=== PATIENT | female | born 1935 | race Caucasian/White ===

== ENCOUNTER 2017-02-25 12:12 | Inpatient (IN) | payer MEDICARE ==
[2017-02-25] MEDS ORDERED: Ondansetron 4 MG/2 ML SDV IVPUSH ONE (12:40)
[2017-02-25] MEDS ORDERED: Sodium Chloride 0.9% 1,000 ML IV SCH (12:45)
[2017-02-25] MEDS ORDERED: Iopamidol 612 MG/ML 150 ML Bottle IV PRN (13:00)
--- NOTE | 2017-02-25 14:29 | EDM.PDOC ---
ED HPI GENERAL MEDICAL PROBLEM - General Chief Complaint: Gastrointestinal Problem Stated Complaint: DIARRHEA; SPITTING UP MUCUS Time Seen by Provider: 02/25/17 12:35 Source of Information: Reports: Patient History Limitations: Reports: No Limitations - History of Present Illness INITIAL COMMENTS - FREE TEXT/NARRATIVE: History of present illness: [81-year-old female presenting with diarrhea and nausea and vomiting. Her vomiting she describes more as regurgitation of villous tasting material in phlegm. This all started last 24 hours. She said no fever chills cough cold symptoms no chest pain or shortness of breath she does complain of a little bit of distention of her abdomen and some pain in her left lower quadrant. She states she did have diverticulitis at one time. Denies any dysuria denies any headaches or visual disturbances or focal neurologic complaints. She is brought in by private vehicle and ambulated into the emergency room she lives close to her children.] Review of systems: As per history of present illness and below otherwise all systems reviewed and negative. Past medical history: As per history of present illness and as reviewed below otherwise noncontributory. Surgical history: As per history of present illness and as reviewed below otherwise noncontributory. Social history: No reported history of drug or alcohol abuse. Family history: As per history of present illness and as reviewed below otherwise noncontributory. Physical exam: HEENT: Atraumatic, normocephalic, pupils reactive, negative for conjunctival pallor or scleral icterus, mucous membranes moist, throat clear, neck supple, nontender, trachea midline. Lungs: Clear to auscultation, breath sounds equal bilaterally, chest nontender. Heart: S1S2, regular, negative for clicks, rubs, or JVD. Abdomen: Abdomen is distended with some tenderness to palpation left lower quadrant no peritoneal signs hypoactive bowel sounds. Pelvis: Stable nontender. Genitourinary: Deferred. Rectal: Deferred. Extremities: Atraumatic, negative for cords or calf pain. Neurovascular unremarkable. Neuro: Awake, alert, oriented. Cranial nerves II through XII unremarkable. Cerebellum unremarkable. Motor and sensory unremarkable throughout. Exam nonfocal. Diagnostics: [CBC does show an elevated white count amylase and lipase are normal. CMP is been done as well as abdominal pelvic CT which is showing a partial small bowel obstruction. She's had 3 abdominal surgeries and likely has adhesions.] Therapeutics: [She's received IV fluids and IV Zofran and is feeling better.] Impression: [Partial small bowel obstruction] Plan: [Spoke with Dr. Snowden who will be coming down to see her and admit her] Definitive disposition and diagnosis as appropriate pending reevaluation and review of above. - Related Data Allergies Allergy/AdvReac Type Severity Reaction Status Date / Time acetaminophen Allergy Nausea Verified 02/25/17 13:25 celecoxib [From Celebrex] Allergy Hives Verified 02/25/17 13:25 cisapride monohydrate Allergy Hives Verified 02/25/17 13:25 [From Propulsid] famotidine [From Pepcid] Allergy Hives Verified 02/25/17 13:25 hydrocodone Allergy Nausea and Verified 02/25/17 13:26 Vomiting lansoprazole [From Prevacid] Allergy Rash Verified 02/25/17 13:25 levofloxacin [From Levaquin] Allergy Rash Verified 02/25/17 13:25 morphine Allergy Hallucinati Verified 02/25/17 13:25 ons omeprazole [From Prilosec] Allergy Rash Verified 02/25/17 13:25 omeprazole magnesium Allergy Rash Verified 02/25/17 13:25 [From Prilosec] pilocarpine Allergy Hives Verified 02/25/17 13:25 prednisolone acetate, Allergy Hives Verified 02/25/17 13:26 micronized rabeprazole sodium Allergy Hives Verified 02/25/17 13:25 [From Aciphex] salsalate [Salsalate] Allergy Hives Verified 02/25/17 13:25 Sulfa (Sulfonamide Allergy Rash Verified 02/25/17 13:25 Antibiotics) Home Meds: Home Meds Ethacrynic Acid [Edecrin] 1 tab PO DAILY 04/07/16 [History] Lisinopril [Lisinopril] 0.5 tab PO BID 04/07/16 [History] Loratadine [Loratadine] 1 tab PO DAILY 04/07/16 [History] Nabumetone [Nabumetone] 1 tab PO DAILY 04/07/16 [History] Simvastatin [Simvastatin] 1 tab PO BEDTIME 04/07/16 [History] Sucralfate [Sucralfate] 1 tab PO QID 04/07/16 [History] Warfarin Sodium [Warfarin Sodium] 1 tab PO ASDIRECTED 04/07/16 [History] amLODIPine Besylate [Amlodipine Besylate] 1 tab PO BEDTIME 04/07/16 [History] metroNIDAZOLE [Metronidazole] 1 dose TOP ASDIRECTED 04/07/16 [History] Acetaminophen [Pain Reliever] 1 - 2 tab PO Q6H PRN 02/25/17 [History] Acetaminophen/Diphenhydramine [Tylenol Pm Ex-Strength Caplet] 1 tab PO BEDTIME 02/25/17 [History] Calcium Carbonate/Vitamin D3 [Calcium Carb 500 MG] 1 tab PO TID 02/25/17 [ History] Ergocalciferol (Vitamin D2) [Vitamin D2] 1 tab PO DAILY 02/25/17 [History] Metoprolol Tartrate 0.25 tab PO BID 02/25/17 [History] Multivitamin [Daily [place]] 1 tab PO DAILY 02/25/17 [History] [place]-3S/DHA/Epa/Fish Oil [[place]-3 Fish Oil 1,000 mg Sfgl] 1 tab PO DAILY [History] Past Medical History HEENT History: Reports: Impaired Vision Cardiovascular History: Reports: Hypertension [employer] History: Reports: Endocrine/Metabolic History: Reports: Diabetes, Type II Other Endocrine/Metabolic History: controlled by diet Hematologic History: Reports: Anemia - Infectious Disease History Infectious Disease History: Reports: Chicken Pox, Measles, Mumps - Past Surgical History GI Surgical History: Reports: Other (See Below) Other GI Surgeries/Procedures: had surgery for diverticulitis and enlarged ovary Female Surgical History: Reports: Other (See Below) Other Female Surgeries/Procedures: bladder sling Musculoskeletal Surgical History: Reports: Knee Replacement Social & Family History - Tobacco Use Smoking Status *Q: Never Smoker - Caffeine Use Caffeine Use: Reports: Coffee - Recreational Drug Use Recreational Drug Use: No ED ROS GENERAL - Review of Systems Review Of Systems: ROS reveals no pertinent complaints other than HPI. ED EXAM, GI/ABD - Physical Exam Exam: See Below Course - Vital Signs Last Recorded V/S: Last Vital Signs Temp 37.3 C 02/25/17 12:29 Pulse 94 02/25/17 12:29 Resp 28 H 02/25/17 12:29 BP 146/69 H 02/25/17 12:29 Pulse Ox 98 02/25/17 12:29 - Orders/Labs/Meds Orders: Active Orders 24 hr Category Date Time Status Abdomen Pelvis w Cont [CT] Stat Exams 02/25/17 12:39 Taken Iopamidol [Isovue-300 (61%)] Med 02/25/17 13:00 Active 135 ml IV . DIRECTED PRN Sodium Chloride 0.9% [Normal Saline] 1,000 ml Med 02/25/17 12:45 Active IV ASDIRECTED Sodium Chloride 0.9% [Normal Saline] 84 ml Med 02/25/17 13:00 Active IV ASDIRECTED Medication Orders Sodium Chloride (Normal Saline) 1,000 mls @ 500 mls/hr IV ASDIRECTED HANNAH Last Admin: 02/25/17 13:00 Dose: 500 mls/hr Sodium Chloride (Normal Saline) 84 mls @ 3.5 mls/sec IV ASDIRECTED [facility] Last Admin: 02/25/17 13:24 Dose: 3.5 mls/sec Iopamidol (Isovue-300 (61%)) 135 ml IV . DIRECTED PRN PRN Reason: RADIOLOGY EXAM Stop: 02/26/17 13:01 Last Admin: 02/25/17 13:24 Dose: 135 ml Labs: Laboratory Tests 02/25/17 02/25/17 02/25/17 Range/Units 12:53 12:53 12:53 WBC 15.1 H (4.5-11.0) K/uL RBC 4.77 (3.30-5.50) M/uL Hgb 14.7 (12.0-15.0) g/dL Hct 42.0 (36.0-48.0) % MCV 88 (80-98) fL MCH 31 (27-31) pg MCHC 35 (32-36) % Plt Count 199 (150-400) K/uL Neut % (Auto) 79 H (36-66) % Lymph % (Auto) 13 L (24-44) % [place] % (Auto) 8 H (2-6) % Eos % (Auto) 1 L (2-4) % Baso % (Auto) 0 (0-1) % PT (9.5-12.0) sec INR (0.80-1.20) Sodium 134 L (140-148) mmol/L Potassium 4.1 (3.6-5.2) mmol/L Chloride 99 L (100-108) mmol/L Carbon Dioxide 24 (21-32) mmol/L Anion Gap 15.1 H (5.0-14.0) mmol/L BUN 17 (7-18) mg/dL Creatinine 0.9 (0.6-1.0) mg/dL Est Cr Clr Drug Dosing 35.74 mL/min Estimated GFR (MDRD) 60 (>60) Glucose 140 H (74-106) mg/dL Lactic Acid 2.0 (0.4-2.0) mmol/L Calcium 8.9 (8.5-10.1) mg/dL Total Bilirubin 0.7 (0.2-1.0) mg/dL AST 23 (15-37) U/L ALT 24 (12-78) U/L Alkaline Phosphatase 60 (46-116) U/L Total Protein 7.3 (6.4-8.2) g/dL Albumin 3.4 (3.4-5.0) g/dL Globulin 3.9 H (2.3-3.5) g/dL Albumin/Globulin Ratio 0.9 L (1.2-2.2) Amylase 37 (25-115) U/L Lipase 98 (73-393) U/L Urine Color Urine Appearance Urine pH (4.5-8.0) Ur Specific [place] (1.008-1.030) Urine Protein (NEGATIVE) mg/dL Urine Glucose (UA) (NEGATIVE) mg/dL Urine Ketones (NEGATIVE) mg/dL Urine Occult Blood (NEGATIVE) Urine Nitrite (NEGATIVE) Urine Bilirubin (NEGATIVE) Urine Urobilinogen (NORMAL) mg/dL Ur Leukocyte Esterase (NEGATIVE) Urine RBC (0-5) Urine WBC (0-5) Ur Epithelial Cells Amorphous Sediment Urine Bacteria Urine Mucus 02/25/17 02/25/17 Range/Units 13:02 13:07 WBC (4.5-11.0) K/uL RBC (3.30-5.50) M/uL Hgb (12.0-15.0) g/dL Hct (36.0-48.0) % MCV (80-98) fL MCH (27-31) pg MCHC (32-36) % Plt Count (150-400) K/uL Neut % (Auto) (36-66) % Lymph % (Auto) (24-44) % [place] % (Auto) (2-6) % Eos % (Auto) (2-4) % Baso % (Auto) (0-1) % PT 17.6 H (9.5-12.0) sec INR 1.61 H (0.80-1.20) Sodium (140-148) mmol/L Potassium (3.6-5.2) mmol/L Chloride (100-108) mmol/L Carbon Dioxide (21-32) mmol/L Anion Gap (5.0-14.0) mmol/L BUN (7-18) mg/dL Creatinine (0.6-1.0) mg/dL Est Cr Clr Drug Dosing mL/min Estimated GFR (MDRD) (>60) Glucose (74-106) mg/dL Lactic Acid (0.4-2.0) mmol/L Calcium (8.5-10.1) mg/dL Total Bilirubin (0.2-1.0) mg/dL AST (15-37) U/L ALT (12-78) U/L Alkaline Phosphatase (46-116) U/L Total Protein (6.4-8.2) g/dL Albumin (3.4-5.0) g/dL Globulin (2.3-3.5) g/dL Albumin/Globulin Ratio (1.2-2.2) Amylase (25-115) U/L Lipase (73-393) U/L Urine Color Yellow Urine Appearance Cloudy Urine pH 7.0 (4.5-8.0) Ur Specific [place] 1.010 (1.008-1.030) Urine Protein Negative (NEGATIVE) mg/dL Urine Glucose (UA) Normal (NEGATIVE) mg/dL Urine Ketones Negative (NEGATIVE) mg/dL Urine Occult Blood Moderate (NEGATIVE) Urine Nitrite Negative (NEGATIVE) Urine Bilirubin Negative (NEGATIVE) Urine Urobilinogen Normal (NORMAL) mg/dL Ur Leukocyte Esterase Negative (NEGATIVE) Urine RBC 0-5 (0-5) Urine WBC 0-5 (0-5) Ur Epithelial Cells Not seen Amorphous Sediment Not seen Urine Bacteria Many Urine Mucus Not seen Meds: Medications Generic Name Dose Route Start Last Admin Trade Name Freq PRN Reason Stop Dose Admin Sodium Chloride 1,000 mls @ 500 mls/hr 02/25/17 12:45 02/25/17 13:00 Normal Saline IV 500 mls/hr ASDIRECTED HANNAH Administration Sodium Chloride 84 mls @ 3.5 mls/sec 02/25/17 13:00 02/25/17 13:24 Normal Saline IV 3.5 mls/sec ASDIRECTED HANNAH Administration Iopamidol 135 ml 02/25/17 13:00 02/25/17 13:24 Isovue-300 (61%) IV 02/26/17 13:01 135 ml . DIRECTED PRN Administration RADIOLOGY EXAM Discontinued Medications Generic Name Dose Route Start Last Admin Trade Name Leonard PRN Reason Stop Dose Admin Ondansetron HCl 4 mg 02/25/17 12:40 02/25/17 12:58 Zofran IVPUSH 02/25/17 12:41 4 mg ONETIME ONE Administration Departure - Departure Time of Disposition: 14:29 Disposition: Home, Self-Care 01 Condition: Good Clinical Impression: Small bowel obstruction - Discharge Information Forms: ED Department Discharge - My Orders Last 24 Hours: My Active Orders 02/25/17 12:39 Abdomen Pelvis w Cont [CT] Stat 02/25/17 12:45 Sodium Chloride 0.9% [Normal Saline] 1,000 ml IV ASDIRECTED 02/25/17 13:00 Iopamidol [Isovue-300 (61%)] 135 ml IV . DIRECTED PRN Sodium Chloride 0.9% [Normal Saline] 84 ml IV ASDIRECTED - Assessment/Plan Last 24 Hours: My Active Orders 02/25/17 12:39 Abdomen Pelvis w Cont [CT] Stat 02/25/17 12:45 Sodium Chloride 0.9% [Normal Saline] 1,000 ml IV ASDIRECTED 02/25/17 13:00 Iopamidol [Isovue-300 (61%)] 135 ml IV . DIRECTED PRN Sodium Chloride 0.9% [Normal Saline] 84 ml IV ASDIRECTED
--- NOTE | 2017-02-25 15:19 | PCM.HP ---
H&P History of Present Illness - General Date of Service: 02/25/17 Admit Problem/Dx: Admission Diagnosis/Problem Admission Diagnosis/Problem Small bowel obstruction Source of Information: Patient, Provider History Limitations: Reports: No Limitations - History of Present Illness Initial Comments - Free Text/Narative: Ruchi presents to the emergency room today with abdominal pain, nausea and diarrhea. She reports onset of pain and nausea last night. She describes a crampy and achy left lower quadrant abdominal pain but also some left upper quadrant pain. This is moderate in nature and comes and goes in waves. She has not taken anything to help with the pain. No obvious triggers to make the pain worse. She reports nausea but no vomiting. She has the sensation that there is an acid-like fluid in her esophagus. This morning she had multiple episodes of watery diarrhea but no associated abdominal pain. She has not had any fevers, chills. She does not report chest pain or shortness of breath. She does not have any urinary symptoms at this time. Workup in the emergency room was suggestive of leukocytosis and a probable partial small bowel obstruction. She will have an NG tube placed and be admitted for management of a small bowel obstruction. - Related Data Allergies/Adverse Reactions: Allergies Allergy/AdvReac Type Severity Reaction Status Date / Time acetaminophen Allergy Nausea Verified 02/25/17 13:25 celecoxib [From Celebrex] Allergy Hives Verified 02/25/17 13:25 cisapride monohydrate Allergy Hives Verified 02/25/17 13:25 [From Propulsid] famotidine [From Pepcid] Allergy Hives Verified 02/25/17 13:25 hydrocodone Allergy Nausea and Verified 02/25/17 13:26 Vomiting lansoprazole [From Prevacid] Allergy Rash Verified 02/25/17 13:25 levofloxacin [From Levaquin] Allergy Rash Verified 02/25/17 13:25 morphine Allergy Hallucinati Verified 02/25/17 13:25 ons omeprazole [From Prilosec] Allergy Rash Verified 02/25/17 13:25 omeprazole magnesium Allergy Rash Verified 02/25/17 13:25 [From Prilosec] pilocarpine Allergy Hives Verified 02/25/17 13:25 prednisolone acetate, Allergy Hives Verified 02/25/17 13:26 micronized rabeprazole sodium Allergy Hives Verified 02/25/17 13:25 [From Aciphex] salsalate [Salsalate] Allergy Hives Verified 02/25/17 13:25 Sulfa (Sulfonamide Allergy Rash Verified 02/25/17 13:25 Antibiotics) Home Medications: Home Meds Ethacrynic Acid [Edecrin] 1 tab PO DAILY 04/07/16 [History] Lisinopril [Lisinopril] 0.5 tab PO BID 04/07/16 [History] Loratadine [Loratadine] 1 tab PO DAILY 04/07/16 [History] Nabumetone [Nabumetone] 1 tab PO DAILY 04/07/16 [History] Simvastatin [Simvastatin] 1 tab PO BEDTIME 04/07/16 [History] Sucralfate [Sucralfate] 1 tab PO QID 04/07/16 [History] Warfarin Sodium [Warfarin Sodium] 1 tab PO ASDIRECTED 04/07/16 [History] amLODIPine Besylate [Amlodipine Besylate] 1 tab PO BEDTIME 04/07/16 [History] metroNIDAZOLE [Metronidazole] 1 dose TOP ASDIRECTED 04/07/16 [History] Acetaminophen [Pain Reliever] 1 - 2 tab PO Q6H PRN 02/25/17 [History] Acetaminophen/Diphenhydramine [Tylenol Pm Ex-Strength Caplet] 1 tab PO BEDTIME 02/25/17 [History] Calcium Carbonate/Vitamin D3 [Calcium Carb 500 MG] 1 tab PO TID 02/25/17 [ History] Ergocalciferol (Vitamin D2) [Vitamin D2] 1 tab PO DAILY 02/25/17 [History] Metoprolol Tartrate 0.25 tab PO BID 02/25/17 [History] Multivitamin [Daily Bradly] 1 tab PO DAILY 02/25/17 [History] [place]-3S/DHA/Epa/Fish Oil [[place]-3 Fish Oil 1,000 mg Sfgl] 1 tab PO DAILY [History] Past Medical History HEENT History: Reports: Impaired Vision Cardiovascular History: Reports: Hypertension PER DIEM History: Reports: Endocrine/Metabolic History: Reports: Diabetes, Type II Other Endocrine/Metabolic History: controlled by diet Hematologic History: Reports: Anemia - Infectious Disease History Infectious Disease History: Reports: Chicken Pox, Measles, Mumps - Past Surgical History GI Surgical History: Reports: Other (See Below) Other GI Surgeries/Procedures: had surgery for diverticulitis and enlarged ovary Female Surgical History: Reports: Other (See Below) Other Female Surgeries/Procedures: bladder sling Musculoskeletal Surgical History: Reports: Knee Replacement Social & Family History - Family History GI: Reports: Other (See Below) (no hx of obstruction) - Tobacco Use Smoking Status *Q: Never Smoker - Caffeine Use Caffeine Use: Reports: Coffee - Alcohol Use Alcohol Use History: No - Recreational Drug Use Recreational Drug Use: No H&P Review of Systems - Review of Systems: Review Of Systems: See Below Free Text/Narrative: A complete 12 point review of systems was obtained. Pertinent positives and negatives are noted in the history of present illness. All other systems were reviewed and were negative except as noted. Exam - Exam Exam: See Below - Vital Signs Vital Signs: Last Vital Signs Temp 37.3 C 02/25/17 12:29 Pulse 94 02/25/17 12:29 Resp 28 H 02/25/17 12:29 BP 146/69 H 02/25/17 12:29 Pulse Ox 98 02/25/17 12:29 Weight: 89.5 kg - Exam Quality Assessment: No: Supplemental Oxygen General: Alert, Oriented, Cooperative. No: Mild Distress HEENT: Conjunctiva Clear. No: Mucosa Moist & [place] (dry), Scleral Icterus Neck: Supple, Trachea Midline. No: Lymphadenopathy Lungs: Clear to Auscultation, Normal Respiratory Effort Cardiovascular: Regular Rate, Regular Rhythm. No: Systolic Murmur Abdomen: Soft, Distention, Tenderness (moderate epigastric, mild to moderate LLQ ), Hypoactive Bowel Sounds, Hernia (ventral ). No: Mass Back Exam: Normal Inspection, Full Range of Motion Extremities: Normal Inspection, Normal Pulses. No: Cyanosis Skin: Warm, Dry Neuro Extensive - Mental Status: Alert, Oriented x3, Nl Response to Commands Neuro Extensive - Motor, Sensory, Reflexes: CN II-XII Intact. No: Dysarthria, Abnormal Motor, Tremor Psychiatric: Alert, Normal Affect - Patient Data Lab Results Last 24 hrs: Laboratory Results - last 24 hr 02/25/17 02/25/17 02/25/17 Range/Units 12:53 12:53 12:53 WBC 15.1 H (4.5-11.0) K/uL RBC 4.77 (3.30-5.50) M/uL Hgb 14.7 (12.0-15.0) g/dL Hct 42.0 (36.0-48.0) % MCV 88 (80-98) fL MCH 31 (27-31) pg MCHC 35 (32-36) % Plt Count 199 (150-400) K/uL Neut % (Auto) 79 H (36-66) % Lymph % (Auto) 13 L (24-44) % [place] % (Auto) 8 H (2-6) % Eos % (Auto) 1 L (2-4) % Baso % (Auto) 0 (0-1) % PT (9.5-12.0) sec INR (0.80-1.20) Sodium 134 L (140-148) mmol/L Potassium 4.1 (3.6-5.2) mmol/L Chloride 99 L (100-108) mmol/L Carbon Dioxide 24 (21-32) mmol/L Anion Gap 15.1 H (5.0-14.0) mmol/L BUN 17 (7-18) mg/dL Creatinine 0.9 (0.6-1.0) mg/dL Est Cr Clr Drug Dosing 35.74 mL/min Estimated GFR (MDRD) 60 (>60) Glucose 140 H (74-106) mg/dL Lactic Acid 2.0 (0.4-2.0) mmol/L Calcium 8.9 (8.5-10.1) mg/dL Total Bilirubin 0.7 (0.2-1.0) mg/dL AST 23 (15-37) U/L ALT 24 (12-78) U/L Alkaline Phosphatase 60 (46-116) U/L Total Protein 7.3 (6.4-8.2) g/dL Albumin 3.4 (3.4-5.0) g/dL Globulin 3.9 H (2.3-3.5) g/dL Albumin/Globulin Ratio 0.9 L (1.2-2.2) Amylase 37 (25-115) U/L Lipase 98 (73-393) U/L Urine Color Urine Appearance Urine pH (4.5-8.0) Ur Specific [place] (1.008-1.030) Urine Protein (NEGATIVE) mg/dL Urine Glucose (UA) (NEGATIVE) mg/dL Urine Ketones (NEGATIVE) mg/dL Urine Occult Blood (NEGATIVE) Urine Nitrite (NEGATIVE) Urine Bilirubin (NEGATIVE) Urine Urobilinogen (NORMAL) mg/dL Ur Leukocyte Esterase (NEGATIVE) Urine RBC (0-5) Urine WBC (0-5) Ur Epithelial Cells Amorphous Sediment Urine Bacteria Urine Mucus 02/25/17 02/25/17 Range/Units 13:02 13:07 WBC (4.5-11.0) K/uL RBC (3.30-5.50) M/uL Hgb (12.0-15.0) g/dL Hct (36.0-48.0) % MCV (80-98) fL MCH (27-31) pg MCHC (32-36) % Plt Count (150-400) K/uL Neut % (Auto) (36-66) % Lymph % (Auto) (24-44) % [place] % (Auto) (2-6) % Eos % (Auto) (2-4) % Baso % (Auto) (0-1) % PT 17.6 H (9.5-12.0) sec INR 1.61 H (0.80-1.20) Sodium (140-148) mmol/L Potassium (3.6-5.2) mmol/L Chloride (100-108) mmol/L Carbon Dioxide (21-32) mmol/L Anion Gap (5.0-14.0) mmol/L BUN (7-18) mg/dL Creatinine (0.6-1.0) mg/dL Est Cr Clr Drug Dosing mL/min Estimated GFR (MDRD) (>60) Glucose (74-106) mg/dL Lactic Acid (0.4-2.0) mmol/L Calcium (8.5-10.1) mg/dL Total Bilirubin (0.2-1.0) mg/dL AST (15-37) U/L ALT (12-78) U/L Alkaline Phosphatase (46-116) U/L Total Protein (6.4-8.2) g/dL Albumin (3.4-5.0) g/dL Globulin (2.3-3.5) g/dL Albumin/Globulin Ratio (1.2-2.2) Amylase (25-115) U/L Lipase (73-393) U/L Urine Color Yellow Urine Appearance Cloudy Urine pH 7.0 (4.5-8.0) Ur Specific [place] 1.010 (1.008-1.030) Urine Protein Negative (NEGATIVE) mg/dL Urine Glucose (UA) Normal (NEGATIVE) mg/dL Urine Ketones Negative (NEGATIVE) mg/dL Urine Occult Blood Moderate (NEGATIVE) Urine Nitrite Negative (NEGATIVE) Urine Bilirubin Negative (NEGATIVE) Urine Urobilinogen Normal (NORMAL) mg/dL Ur Leukocyte Esterase Negative (NEGATIVE) Urine RBC 0-5 (0-5) Urine WBC 0-5 (0-5) Ur Epithelial Cells Not seen Amorphous Sediment Not seen Urine Bacteria Many Urine Mucus Not seen Result Diagrams: 02/25/17 12:53 02/25/17 12:53 Imaging Impressions Last 24 hrs: CT abd/pelvis - images personally reviewed - there is evidence for at least a partial small bowel obstruction with distended loops of small bowel and stomach distended as well. Probable mechanical obstruction in LLQ. no mass or infection. *Q Meaningful Use (ADM) - VTE *Q VTE Criteria *Q: - VTE Risk Assess *Q Each Risk Factor Represents 1 Point: None, Obesity (BMI greater than 30) Total Score 1 Point Risk Factors: 1 Each Risk Factor Represents 2 Points: None Total Score 2 Point Risk Factors: 0 Each Risk Factor Represents 3 Points: Age 75 Years or Greater Total Score 3 Point Risk Factors: 3 Each Risk Factor Represents 5 Points: None Total Score 5 Point Risk Factors: 0 Venous Thromboembolism Risk Factor Score *Q: 4 - Stroke *Q Stroke Criteria *Q: - AMI *Q AMI Criteria *Q: - Problem List (1) Small bowel obstruction SNOMED Code(s): 635320712 ICD Code: K56.69 - OTHER INTESTINAL OBSTRUCTION Status: Acute Current Visit: Yes Problem List Initiated/Reviewed/Updated: Yes Orders Last 24hrs: Active Orders 24 hr Category Date Time Status Patient Status Manage Transfer [TRANSFER] Routine ADT 02/25/17 15:07 Ordered Gastrointestinal Tube Mgmt [RC] ASDIRECTED Care 02/25/17 15:07 Active Abdomen Pelvis w Cont [CT] Stat Exams 02/25/17 12:39 Taken Iopamidol [Isovue-300 (61%)] Med 02/25/17 13:00 Active 135 ml IV . DIRECTED PRN Sodium Chloride 0.9% [Normal Saline] 1,000 ml Med 02/25/17 12:45 Active IV ASDIRECTED Sodium Chloride 0.9% [Normal Saline] 84 ml Med 02/25/17 13:00 Active IV ASDIRECTED NG [Nasogastric Orogastric Tube Insertion] [OM.PC] Oth 02/25/17 15:07 Ordered Routine Resuscitation Status Routine Resus Stat 02/25/17 15:10 Ordered Medication Orders Sodium Chloride (Normal Saline) 1,000 mls @ 500 mls/hr IV ASDIRECTED HANNAH Last Admin: 02/25/17 13:00 Dose: 500 mls/hr Sodium Chloride (Normal Saline) 84 mls @ 3.5 mls/sec IV ASDIRECTED HANNAH Last Admin: 02/25/17 13:24 Dose: 3.5 mls/sec Iopamidol (Isovue-300 (61%)) 135 ml IV . DIRECTED PRN PRN Reason: RADIOLOGY EXAM Stop: 02/26/17 13:01 Last Admin: 02/25/17 13:24 Dose: 135 ml Assessment/Plan Comment:: Assessment and plan - Partial small bowel obstruction - likely secondary to adhesions. No vomiting yet but stomach is distended and fluid-filled. History of 3 previous left lower quadrant abdominal surgeries. Mild leukocytosis but otherwise stable. -NG tube for decompression -IV fluids -Pain control -Anti-nausea medications -X-ray in the morning -Surgical consultation if not resolving or worsening Essential hypertension - blood pressure acceptable at this time and usual medications will be continued. Chronic anticoagulation - INR is 1.6 today, will hold warfarin in case surgery is indicated. -Repeat INR in the morning Maintenance issues - - DVT prophylaxis - mechanical - GI prophylaxis - patient is allergic to PPI's and H2 blockers - Nutrition - nothing by mouth - Rubio catheter - not indicated CODE STATUS - full code Admission justification - This patient will be admitted for inpatient services and is medically appropriate meeting medical necessity for inpatient admission as outlined in my documentation. I reasonably expect the patient will require inpatient services that span a period time over 2 midnights. I reasonably expect this patient to be discharged or transferred within 96 hours [facility]. Disposition - anticipated discharge to home after the hospital stay Primary care physician - Lizbeth Macedo nurse practitioner Nicola Snowden M.D.
[2017-02-25] MEDS ORDERED: Acetaminophen 650 MG Supp RECTAL PRN (16:39)
[2017-02-25] MEDS ORDERED: Ondansetron 4 MG Tab.DIS PO PRN (16:39)
[2017-02-25] MEDS ORDERED: HYDROmorphone 0.5 MG/0.5 ML Syringe IVPUSH PRN (16:39)
[2017-02-25] MEDS ORDERED: Ondansetron 4 MG/2 ML SDV IV PRN (16:39)
[2017-02-25] MEDS ORDERED: Acetaminophen 325 MG Tab PO PRN (16:39)
[2017-02-25] MEDS: Sodium Chloride 0.9% 1,000 ML IV SCH (17:12)
[2017-02-25] MEDS ORDERED: amLODIPine 5 MG Tab ONE (19:39)
[2017-02-25] MEDS ORDERED: Lisinopril 10 MG Tab ONE (19:40)
[2017-02-25] MEDS: amLODIPine 2.5 MG Tab PO SCH (20:06)
[2017-02-25] MEDS: Metoprolol Tartrate 25 MG Tab PO SCH (20:06)
[2017-02-25] MEDS: Lisinopril 20 MG Tab PO SCH (20:08)
--- NOTE | 2017-02-25 20:22 | PCM.SN ---
- Free Text/Narrative Note: call from [address] [place] [address]; Mrs. Toledo is requesting her night time medications ; Benadryl, Tylenol and Simvastin a; sleep and high cholesterol p; order benadryl 25mg po, tylenol 500mg po, simvastin 20mg po, give with sip of water.
[2017-02-25] MEDS: Acetaminophen 500 MG Tab PO PRN (21:14)
[2017-02-25] MEDS: diphenhydrAMINE 25 MG Cap PO SCH (21:14)
[2017-02-25] MEDS: Simvastatin 20 MG Tab PO SCH (21:14)
[2017-02-26] MEDS: Lisinopril 20 MG Tab PO SCH ×2 (09:43→21:47)
[2017-02-26] MEDS: Metoprolol Tartrate 25 MG Tab PO SCH ×2 (09:44→21:44)
[2017-02-26] MEDS: Sodium Chloride 0.9% 1,000 ML IV SCH (09:44)
--- NOTE | 2017-02-26 12:14 | PCM.PN ---
- General Info Date of Service: 02/26/17 Functional Status: Reports: pain controlled, ambulating - Review of Systems Gastrointestinal: Reports: Abdominal pain, Nausea Systems Review Comment:: No acute events overnight. She did have a bowel movement this morning. Abdominal pain and distention have improved. NG tube output has been fairly minimal with only 150 mL overnight. Appetite is returning. Abdominal x-ray this morning showed significant improvement in the obstruction with no air-fluid levels remaining and no distended loops of bowel noted. - Patient Data Vitals - most recent: Last Vital Signs Temp 36.8 C 02/26/17 11:04 Pulse 70 02/26/17 11:04 Resp 16 02/26/17 11:04 BP 107/56 L 02/26/17 11:25 Pulse Ox 92 L 02/26/17 11:04 Weight - most recent: 88.904 kg I&O - last 24 hours: Intake & Output 02/25/17 02/26/17 02/26/17 22:59 06:59 14:59 Intake Total 1449 Output Total 200 650 300 Balance -200 799 -300 Lab Results last 24 hrs: Laboratory Results - last 24 hr 02/26/17 02/26/17 02/26/17 Range/Units 05:30 05:30 05:30 WBC 7.2 (4.5-11.0) K/uL RBC 4.16 (3.30-5.50) M/uL Hgb 12.7 D (12.0-15.0) g/dL Hct 37.5 (36.0-48.0) % MCV 90 (80-98) fL MCH 31 (27-31) pg MCHC 34 (32-36) % Plt Count 165 (150-400) K/uL PT 17.8 H (9.5-12.0) sec INR 1.63 H (0.80-1.20) Sodium 140 (140-148) mmol/L Potassium 3.9 (3.6-5.2) mmol/L Chloride 108 (100-108) mmol/L Carbon Dioxide 25 (21-32) mmol/L Anion Gap 7.2 (5.0-14.0) mmol/L BUN 13 (7-18) mg/dL Creatinine 0.8 (0.6-1.0) mg/dL Est Cr Clr Drug Dosing 40.21 mL/min Estimated GFR (MDRD) > 60 (>60) Glucose 107 H (74-106) mg/dL Calcium 7.9 L (8.5-10.1) mg/dL Med Orders - Current: Current Medications Acetaminophen (Tylenol) 650 mg PO Q4H PRN PRN Reason: Pain (Mild 1-3)/fever Acetaminophen (Tylenol) 650 mg RECTAL Q4H PRN PRN Reason: Mild pain/fever Acetaminophen (Tylenol Extra Strength) 500 mg PO BEDTIME PRN PRN Reason: Pain Last Admin: 02/25/17 21:14 Dose: 500 mg Amlodipine Besylate (Norvasc) 2.5 mg PO BEDTIME [facility] Last Admin: 02/25/17 20:06 Dose: 2.5 mg Diphenhydramine HCl (Benadryl) 25 mg PO BEDTIME [facility] Last Admin: 02/25/17 21:14 Dose: 25 mg Ethacrynic Acid (Edecrin) 25 mg PO DAILY [facility] Last Admin: 02/26/17 09:46 Dose: Not Given Hydromorphone HCl (Dilaudid) 0.5 - 1 mg IVPUSH Q2H PRN PRN Reason: Pain (severe 7-10) Last Admin: 02/26/17 05:44 Dose: 0.5 mg Sodium Chloride (Normal Saline) 1,000 mls @ 125 mls/hr IV ASDIRECTED [facility] Last Admin: 02/26/17 09:44 Dose: 125 mls/hr Lisinopril (Prinivil) 20 mg PO BID [facility] Last Admin: 02/26/17 09:43 Dose: 20 mg Metoprolol Tartrate (Lopressor) 12.5 mg PO BID [facility] Last Admin: 02/26/17 09:44 Dose: 12.5 mg Ondansetron HCl (Zofran Odt) 4 mg PO Q6H PRN PRN Reason: Nausea able to take PO Ondansetron HCl (Zofran) 4 mg IV Q6H PRN PRN Reason: Nausea/Vomiting Last Admin: 02/25/17 19:25 Dose: 4 mg Simvastatin (Zocor) 20 mg PO BEDTIME [facility] Last Admin: 02/25/17 21:14 Dose: 20 mg Discontinued Medications Amlodipine Besylate (Norvasc) Confirm Administered Dose 5 mg .ROUTE .STK-MED ONE Stop: 02/25/17 19:40 Last Admin: 02/25/17 20:05 Dose: Not Given Sodium Chloride (Normal Saline) 1,000 mls @ 500 mls/hr IV ASDIRECTED [facility] Last Admin: 02/25/17 13:00 Dose: 500 mls/hr Sodium Chloride (Normal Saline) 84 mls @ 3.5 mls/sec IV ASDIRECTED [facility] Last Admin: 02/25/17 13:24 Dose: 3.5 mls/sec Iopamidol (Isovue-300 (61%)) 135 ml IV . DIRECTED PRN PRN Reason: RADIOLOGY EXAM Stop: 02/26/17 13:01 Last Admin: 02/25/17 13:24 Dose: 135 ml Lisinopril (Prinivil) Confirm Administered Dose 20 mg .ROUTE .STK-MED ONE Stop: 02/25/17 19:41 Last Admin: 02/25/17 20:05 Dose: Not Given Ondansetron HCl (Zofran) 4 mg IVPUSH ONETIME ONE Stop: 02/25/17 12:41 Last Admin: 02/25/17 12:58 Dose: 4 mg - Exam Quality Assessment: No: supplemental oxygen General: alert, oriented, cooperative, no acute distress Neck: supple Lungs: Normal respiratory effort Abdomen: bowel sounds present, soft, no distension, tenderness (mild LLQ) Extremities: no edema, no cyanosis Skin: warm, dry, intact Psy/Mental Status: alert, normal affect - Problem List & Annotations (1) Small bowel obstruction SNOMED Code(s): 285409116 Code(s): K56.69 - OTHER INTESTINAL OBSTRUCTION Status: Acute Current Visit: Yes - Problem List Review Problem List Initiated/Reviewed/Updated: Yes - My Orders Last 24 Hours: My Active Orders 02/25/17 16:39 Patient Status [ADT] Routine Intake and Output [RC] QSHIFT Notify Provider Vital Signs [RC] ASDIRECTED Oxygen Therapy [RC] PRN Up With Assistance [RC] ASDIRECTED VTE/DVT Education [RC] Per Unit Routine Vital Signs [RC] Q4H Acetaminophen [Tylenol] 650 mg PO Q4H PRN Acetaminophen [Tylenol] 650 mg RECTAL Q4H PRN HYDROmorphone [Dilaudid] 0.5 - 1 mg IVPUSH Q2H PRN Ondansetron [Zofran ODT] 4 mg PO Q6H PRN Ondansetron [Zofran] 4 mg IV Q6H PRN Sodium Chloride 0.9% [Normal Saline] 1,000 ml IV ASDIRECTED Sequential Compression Device [OM.PC] Per Unit Routine 02/25/17 Dinner Nothing per Oral Now Diet [DIET] 02/26/17 05:00 Abdomen 2V AP Flat Upright [CR] DAILY 02/26/17 09:13 Communication Order [RC] ROUTINE 02/26/17 09:21 Resuscitation Status Routine 02/26/17 13:00 Warfarin [Coumadin] 5 mg PO DAILY@1300 02/27/17 05:00 Abdomen 2V AP Flat Upright [CR] DAILY CBC W/O DIFF,HEMOGRAM [HEME] Timed (1) INR,PT,PROTHROMBIN TIME [COAG] Timed POTASSIUM,K [CHEM] Timed - Plan Plan:: Assessment and plan - Partial small bowel obstruction - likely secondary to adhesions. Symptomatically doing much better. Minimal NG tube drainage. -Clamp NG tube, remove this afternoon if drainage is minimal -IV fluids this morning, saline lock if NG tube is removed -Pain control -Anti-nausea medications -Trial of clear liquids later if NG tube was removed -Surgical consultation if not resolving or worsening Essential hypertension - blood pressure acceptable at this time and usual medications will be continued. Chronic anticoagulation - INR is 1.6 today, plan to restart warfarin today. -Warfarin 5 mg daily -Repeat INR in the morning Maintenance issues - - DVT prophylaxis - mechanical - GI prophylaxis - patient is allergic to PPI's and H2 blockers - Nutrition - nothing by mouth - Rubio catheter - not indicated CODE STATUS - patient has advanced directive stating she is a DNR/DNI Disposition - anticipated discharge to home after the hospital stay, possibly tomorrow if we're able to advance her diet overnight and she continues to do well Primary care physician - Lizbeth Snowden M.D.
[2017-02-26] MEDS: Warfarin 5 MG Tab PO SCH (14:45)
[2017-02-26] MEDS: diphenhydrAMINE 25 MG Cap PO SCH (21:44)
[2017-02-26] MEDS: amLODIPine 2.5 MG Tab PO SCH (21:46)
[2017-02-26] MEDS: Simvastatin 20 MG Tab PO SCH (21:46)
[2017-02-26] MEDS: Acetaminophen 500 MG Tab PO PRN (21:47)
[2017-02-27 08:17] VITALS: BP 142/75
[2017-02-27] MEDS: Metoprolol Tartrate 25 MG Tab PO SCH (08:39)
[2017-02-27] MEDS: Lisinopril 20 MG Tab PO SCH (08:40)
[2017-02-27] MEDS ORDERED: Potassium Chloride 20 MEQ Tab.ER PO ONE (09:00)
--- NOTE | 2017-02-27 10:27 | PCM.DCSUM1 ---
Discharge Summary - Hospital Course Brief History: Ms. Toledo is an 81-year-old woman who was admitted through the emergency department with nausea and vomiting, abdominal pain, secondary to mechanical bowel obstruction. - Discharge Data Discharge Date: 02/27/17 Discharge Disposition: Home, Self-Care 01 Condition: Good - Discharge Diagnosis/Problem(s) (1) Small bowel obstruction SNOMED Code(s): 425360037 ICD Code: K56.69 - OTHER INTESTINAL OBSTRUCTION Status: Acute Current Visit: Yes - Patient Summary/Data Hospital Course: Ms. Toledo is an 81-year-old woman who developed symptoms of nausea vomiting with cramping abdominal pain. On evaluation in the emergency department vital signs were stable and she was afebrile. CT scan of the abdomen did document bowel obstruction and an NG tube was placed for management. She was admitted to the hospital and given IV pain medication as well as antiemetic therapy as needed. IV fluids were initiated for hydration and she was kept nothing by mouth. By the following day she was feeling better, NG tube was clamped and after 4 hours there was only minimal residual. NG tube was removed and she was started on a clear liquid diet. She tolerated this overnight and on the day of discharge tolerated a soft mechanical diet at breakfast and lunch without difficulty. She will be discharged home on a soft mechanical diet, activity will be as tolerated. Follow-up appointment will be scheduled with her primary care provider within one week. Follow-up appointment in the Coumadin clinic will be scheduled in 2 days. - Patient Instructions Diet: GI Soft/Low Residue/Low Fiber Activity: As Tolerated Other/Special Instructions: Schedule follow-up appointment with primary care provider Lizbeth Macedo within one week. Schedule follow-up appointment in the Coumadin clinic in 2 days. - Discharge Plan Home Medications: Home Meds Ethacrynic Acid [Edecrin] 1 tab PO DAILY 04/07/16 [History] Lisinopril 0.5 tab PO BID 04/07/16 [History] Loratadine 1 tab PO DAILY 04/07/16 [History] Nabumetone 1 tab PO DAILY 04/07/16 [History] Simvastatin 1 tab PO BEDTIME 04/07/16 [History] Sucralfate 1 tab PO QID 04/07/16 [History] Warfarin Sodium 1 tab PO ASDIRECTED 04/07/16 [History] amLODIPine Besylate [Amlodipine Besylate] 1 tab PO BEDTIME 04/07/16 [History] metroNIDAZOLE [Metronidazole] 1 dose TOP ASDIRECTED 04/07/16 [History] Acetaminophen [Pain Reliever] 1 - 2 tab PO Q6H PRN 02/25/17 [History] Acetaminophen/Diphenhydramine [Tylenol Pm Ex-Strength Caplet] 1 tab PO BEDTIME 02/25/17 [History] Calcium Carbonate/Vitamin D3 [Calcium Carb 500 MG] 1 tab PO TID 02/25/17 [ History] Ergocalciferol (Vitamin D2) [Vitamin D2] 1 tab PO DAILY 02/25/17 [History] Metoprolol Tartrate 0.25 tab PO BID 02/25/17 [History] Multivitamin [Daily Bradly] 1 tab PO DAILY 02/25/17 [History] Cameron-3S/DHA/Epa/Fish Oil [[place]-3 Fish Oil 1,000 mg Sfgl] 1 tab PO DAILY [History] Referrals: Lizbeth Macedo NP [Primary Care Provider] - - Patient Data Vitals - Most Recent: Last Vital Signs Temp 97.1 F 02/27/17 08:13 Pulse 82 02/27/17 08:39 Resp 14 02/27/17 08:13 BP 142/75 H 02/27/17 08:40 Pulse Ox 96 02/27/17 08:13 Weight - Most Recent: 195 lb 15.996 oz I&O - Last 24 hours: Intake & Output 02/26/17 02/27/17 02/27/17 22:59 06:59 14:59 Intake Total 600 357 Output Total 550 350 300 Balance 50 -350 57 Lab Results - Last 24 hrs: Laboratory Results - last 24 hr 02/27/17 02/27/17 02/27/17 Range/Units 05:50 05:50 05:50 WBC 5.8 (4.5-11.0) K/uL RBC 4.06 (3.30-5.50) M/uL Hgb 12.4 (12.0-15.0) g/dL Hct 37.0 (36.0-48.0) % MCV 91 (80-98) fL MCH 31 (27-31) pg MCHC 34 (32-36) % Plt Count 169 (150-400) K/uL PT 17.6 H (9.5-12.0) sec INR 1.61 H (0.80-1.20) Potassium 3.5 L (3.6-5.2) mmol/L Med Orders - Current: Current Medications Acetaminophen (Tylenol) 650 mg PO Q4H PRN PRN Reason: Pain (Mild 1-3)/fever Acetaminophen (Tylenol) 650 mg RECTAL Q4H PRN PRN Reason: Mild pain/fever Acetaminophen (Tylenol Extra Strength) 500 mg PO BEDTIME PRN PRN Reason: Pain Last Admin: 02/26/17 21:47 Dose: 500 mg Amlodipine Besylate (Norvasc) 2.5 mg PO BEDTIME [facility] Last Admin: 02/26/17 21:46 Dose: 2.5 mg Diphenhydramine HCl (Benadryl) 25 mg PO BEDTIME [facility] Last Admin: 02/26/17 21:44 Dose: 25 mg Ethacrynic Acid (Edecrin) 25 mg PO DAILY [facility] Last Admin: 02/26/17 09:46 Dose: Not Given Hydromorphone HCl (Dilaudid) 0.5 - 1 mg IVPUSH Q2H PRN PRN Reason: Pain (severe 7-10) Last Admin: 02/26/17 05:44 Dose: 0.5 mg Lisinopril (Prinivil) 20 mg PO BID [facility] Last Admin: 02/27/17 08:40 Dose: 20 mg Metoprolol Tartrate (Lopressor) 12.5 mg PO BID [facility] Last Admin: 02/27/17 08:39 Dose: 12.5 mg Ondansetron HCl (Zofran Odt) 4 mg PO Q6H PRN PRN Reason: Nausea able to take PO Ondansetron HCl (Zofran) 4 mg IV Q6H PRN PRN Reason: Nausea/Vomiting Last Admin: 02/25/17 19:25 Dose: 4 mg Simvastatin (Zocor) 20 mg PO BEDTIME [facility] Last Admin: 02/26/17 21:46 Dose: 20 mg Warfarin Sodium (Coumadin) 5 mg PO DAILY@1300 [facility] Last Admin: 02/26/17 14:45 Dose: 5 mg Discontinued Medications Amlodipine Besylate (Norvasc) Confirm Administered Dose 5 mg .ROUTE .[facility]-MED ONE Stop: 02/25/17 19:40 Last Admin: 02/25/17 20:05 Dose: Not Given Sodium Chloride (Normal Saline) 1,000 mls @ 500 mls/hr IV ASDIRECTED [facility] Last Admin: 02/25/17 13:00 Dose: 500 mls/hr Sodium Chloride (Normal Saline) 84 mls @ 3.5 mls/sec IV ASDIRECTED [facility] Last Admin: 02/25/17 13:24 Dose: 3.5 mls/sec Sodium Chloride (Normal Saline) 1,000 mls @ 125 mls/hr IV ASDIRECTED [facility] Last Admin: 02/26/17 09:44 Dose: 125 mls/hr Iopamidol (Isovue-300 (61%)) 135 ml IV . DIRECTED PRN PRN Reason: RADIOLOGY EXAM Stop: 02/26/17 13:01 Last Admin: 02/25/17 13:24 Dose: 135 ml Lisinopril (Prinivil) Confirm Administered Dose 20 mg .ROUTE .STK-MED ONE Stop: 02/25/17 19:41 Last Admin: 02/25/17 20:05 Dose: Not Given Ondansetron HCl (Zofran) 4 mg IVPUSH ONETIME ONE Stop: 02/25/17 12:41 Last Admin: 02/25/17 12:58 Dose: 4 mg Potassium Chloride (Klor-Con M20) 40 meq PO ONETIME ONE Stop: 02/27/17 09:01 Last Admin: 02/27/17 08:39 Dose: 40 meq *Q Meaningful Use (DIS) - VTE *Q VTE Criteria *Q: - Stroke *Q Stroke Criteria *Q: - AMI *Q AMI Criteria *Q:
--- NOTE | 2017-02-27 10:56 | CR ---
Abdomen 2V AP Flat Upright INDICATION: f/u obstruction FINDINGS: Comparison CT 02/25/2017. Enteric tube in place with tip in the stomach. Nonspecific bowel g as pattern. No evidence for dilated small bowel loops. Contrast in the bladder. Scattered stool and gas in the colon.
[2017-02-27] MEDS: Warfarin 5 MG Tab PO SCH (12:17)
== END 2017-02-27 12:28 | disposition home or self-care (01) | DRG 390 ==
LOC: JP.ED 12:12 → JP.MS 15:07
PROVIDERS: ADMIT Internal Medicine; ATTEND Hospitalist
DX: K56.69 Other intestinal obstruction (principal); I10 Essential (primary) hypertension; E11.9 Type 2 diabetes mellitus without complications; Z66 Do not resuscitate; R10.32 Left lower quadrant pain; R11.2 Nausea with vomiting, unspecified; R19.7 Diarrhea, unspecified; E78.00 Pure hypercholesterolemia, unspecified; H54.7 Unspecified visual loss; Z79.01 Long term (current) use of anticoagulants; Z96.659 Presence of unspecified artificial knee joint; Z88.6 Allergy status to analgesic agent; Z88.5 Allergy status to narcotic agent; Z88.2 Allergy status to sulfonamides; Z88.8 Allergy status to other drugs, medicaments and biological substances
CPT/HCPCS: 36415; 74177; 80053; 81001; 82150; 83605; 83690; 85025; 85610; 96361; 96374; 99284; J2405; J7030; J7040; 74020; 74020-26; 80048; 84132; 85027; A9270-GY; J1170

== ENCOUNTER 2018-08-26 09:14 | Emergency (ER) | payer MEDICARE ==
[2018-08-26 09:35] VITALS: BP 171/75
[2018-08-26] MEDS ORDERED: Phenazopyridine 95 MG Tab PO ONE (09:53)
[2018-08-26] MEDS ORDERED: cefTRIAXone 1 GM, Lidocaine 1% 2.1 ML IM ONE ×2 (09:56)
--- NOTE | 2018-08-26 10:02 | EDM.PDOC ---
ED HPI GENERAL MEDICAL PROBLEM - General Chief Complaint: Genitourinary Problem Stated Complaint: possible uti Time Seen by Provider: 08/26/18 09:57 Source of Information: Reports: Patient History Limitations: Reports: No Limitations - History of Present Illness INITIAL COMMENTS - FREE TEXT/NARRATIVE: pt arrived with marked urionary burning with voiding. She has been up all nite with this. She has been drinking alot of fluid. She has not had a recent infection. She has not had a high temp. Onset: Other ( started yesterday. ) Duration: Hour(s): Location: Reports: Abdomen, Other ( burning on uriination) Associated Symptoms: Reports: Other (pt did have some chilling. ) Pelvic Pain Score (Numeric/FACES): 5 - Related Data Allergies Allergy/AdvReac Type Severity Reaction Status Date / Time celecoxib [From Celebrex] Allergy Hives Verified 08/26/18 09:52 cisapride monohydrate Allergy Hives Verified 08/26/18 09:52 [From Propulsid] famotidine [From Pepcid] Allergy Hives Verified 08/26/18 09:52 lansoprazole [From Prevacid] Allergy Rash Verified 08/26/18 09:52 levofloxacin [From Levaquin] Allergy Rash Verified 08/26/18 09:52 omeprazole [From Prilosec] Allergy Rash Verified 08/26/18 09:52 omeprazole magnesium Allergy Rash Verified 08/26/18 09:52 [From Prilosec] pilocarpine Allergy Hives Verified 08/26/18 09:52 prednisolone acetate, Allergy Hives Verified 08/26/18 09:52 micronized rabeprazole sodium Allergy Hives Verified 08/26/18 09:52 [From Aciphex] salsalate [Salsalate] Allergy Hives Verified 08/26/18 09:52 Sulfa (Sulfonamide Allergy Rash Verified 08/26/18 09:52 Antibiotics) acetaminophen AdvReac Nausea Verified 08/26/18 09:52 hydrocodone AdvReac Nausea and Verified 08/26/18 09:52 Vomiting morphine AdvReac Hallucinati Verified 08/26/18 09:52 ons Home Meds: Home Meds Ethacrynic Acid [Edecrin] 25 mg PO DAILY 04/07/16 [History] Lisinopril 20 mg PO BID 04/07/16 [History] Loratadine 1 tab PO DAILY 04/07/16 [History] Nabumetone 500 mg PO DAILY 04/07/16 [History] Simvastatin 20 mg PO BEDTIME 04/07/16 [History] Sucralfate 1 gm PO QID 04/07/16 [History] Warfarin Sodium 5 mg PO ASDIRECTED 04/07/16 [History] amLODIPine Besylate [Amlodipine Besylate] 2.5 mg PO BEDTIME 04/07/16 [History] metroNIDAZOLE [Metronidazole] 1 dose TOP ASDIRECTED 04/07/16 [History] Acetaminophen [Pain Reliever] 1 - 2 tab PO Q6H PRN 02/25/17 [History] Ergocalciferol (Vitamin D2) [Vitamin D2] 1 tab PO DAILY 02/25/17 [History] Metoprolol Tartrate 0.25 tab PO BID 02/25/17 [History] Multivitamin [Daily Bradly] 1 tab PO DAILY 02/25/17 [History] Webster-3S/DHA/Epa/Fish Oil [[place]-3 Fish Oil 1,000 mg Sfgl] 1 tab PO DAILY [History] cephALEXin [Cephalexin] 500 mg PO BID 04/13/18 [History] Oxybutynin [Oxybutynin ER] 10 mg PO DAILY 08/26/18 [History] Past Medical History HEENT History: Reports: Impaired Vision Cardiovascular History: Reports: Hypertension Gastrointestinal History: Reports: Diverticulosis [employer] History: Reports: Endocrine/Metabolic History: Reports: Diabetes, Type II Other Endocrine/Metabolic History: controlled by diet Hematologic History: Reports: Anemia - Infectious Disease History Infectious Disease History: Reports: Chicken Pox, Measles, Mumps - Past Surgical History HEENT Surgical History: Reports: Cataract Surgery GI Surgical History: Reports: Other (See Below) Other GI Surgeries/Procedures: had surgery for diverticulitis and enlarged ovary Female Surgical History: Reports: Other (See Below) Other Female Surgeries/Procedures: bladder sling Musculoskeletal Surgical History: Reports: Knee Replacement Social & Family History - Family History GI: Reports: Other (See Below) - Caffeine Use Caffeine Use: Reports: None ED ROS GENERAL - Review of Systems Review Of Systems: See Below Constitutional: Reports: Chills, Malaise HEENT: Reports: No Symptoms Respiratory: Reports: No Symptoms Cardiovascular: Reports: No Symptoms Endocrine: Reports: No Symptoms GI/Abdominal: Reports: No Symptoms : Reports: Dysuria, Frequency Musculoskeletal: Reports: No Symptoms ED EXAM, RENAL/ - Physical Exam Exam: See Below Text/Narrative:: pt arrived with urinary burning and frequency. She is allergic to levoquin and to sulfa. Exam Limited By: No Limitations General Appearance: Alert Ears: Normal TMs Nose: Normal Inspection Throat/Mouth: Normal Inspection Head: Atraumatic Neck: Normal Inspection GI/Abdominal: Non-Tender (Female) Exam: Other (pt is not having marked flank pain. ) Rectal (Female) Exam: Deferred Extremities: Normal Inspection Course - Vital Signs Last Recorded V/S: Last Vital Signs Temp 36.1 C 08/26/18 09:51 Pulse 80 08/26/18 09:51 Resp 16 08/26/18 09:51 BP 171/75 H 08/26/18 09:51 Pulse Ox 96 08/26/18 09:51 - Orders/Labs/Meds Orders: Active Orders 24 hr Category Date Time Status CULTURE URINE [RM] Stat Lab 08/26/18 09:52 Ordered Labs: Laboratory Tests 08/26/18 Range/Units 09:25 Urine Color Yellow Urine Appearance Turbid Urine pH 6.0 (4.5-8.0) Ur Specific [place] 1.005 L (1.008-1.030) Urine Protein 500 H (NEGATIVE) mg/dL Urine Glucose (UA) Normal (NEGATIVE) mg/dL Urine Ketones Negative (NEGATIVE) mg/dL Urine Occult Blood Moderate (NEGATIVE) Urine Nitrite Positive H (NEGATIVE) Urine Bilirubin Negative (NEGATIVE) Urine Urobilinogen Normal (NORMAL) mg/dL Ur Leukocyte Esterase Large (NEGATIVE) Urine RBC 5-10 H (0-5) Urine WBC 75-100 H (0-5) Ur Epithelial Cells Not seen Amorphous Sediment Not seen Urine Bacteria Many Urine Mucus Not seen Meds: Medications Discontinued Medications Generic Name Dose Route Start Last Admin Trade Name Freq PRN Reason Stop Dose Admin Ceftriaxone Sodium 1 gm/ 0 gm 08/26/18 09:56 Lidocaine HCl 2.1 ml IM 08/26/18 09:57 ONETIME ONE Phenazopyridine HCl 190 mg 08/26/18 09:53 Urinary Pain Relief PO 08/26/18 09:54 ONETIME ONE - Re-Assessments/Exams Free Text/Narrative Re-Assessment/Exam: 08/26/18 10:00 urine is very infected and it was cultured. Departure - Departure Time of Disposition: 10:01 Disposition: Home, Self-Care 01 Condition: Fair Clinical Impression: UTI (urinary tract infection) - Discharge Information Referrals: PCP,None [Primary Care Provider] - Care Plan Goals: push fluids, pyridium 200mg tid for 2 days, augmentin 875 bid. - My Orders Last 24 Hours: My Active Orders 08/26/18 09:52 CULTURE URINE [RM] Stat - Assessment/Plan Last 24 Hours: My Active Orders 08/26/18 09:52 CULTURE URINE [RM] Stat
[2018-08-26] MEDS ORDERED: Phenazopyridine 95 MG Tab ONE (10:50)
== END 2018-08-26 10:48 | disposition home or self-care (01) ==
LOC: JP.ED 09:14
DX: N39.0 Urinary tract infection, site not specified (principal); I10 Essential (primary) hypertension; E11.9 Type 2 diabetes mellitus without complications; Z79.899 Other long term (current) drug therapy; Z88.5 Allergy status to narcotic agent; Z88.8 Allergy status to other drugs, medicaments and biological substances
CPT/HCPCS: 81001; 87086; 87088; 87186; 96372; 99284; A9270; J0696

== ENCOUNTER 2019-10-01 06:50 | Emergency (ER) | payer MEDICARE ==
[2019-10-01 07:23] VITALS: BP 138/63; PULSE 81
--- NOTE | 2019-10-01 07:52 | EDM.PDOC ---
ED HPI GENERAL MEDICAL PROBLEM - General Chief Complaint: Back Pain or Injury Stated Complaint: BACK AND HIP PAIN Time Seen by Provider: 10/01/19 07:37 Source of Information: Reports: Patient, Family, RN Notes Reviewed History Limitations: Reports: No Limitations - History of Present Illness INITIAL COMMENTS - FREE TEXT/NARRATIVE: 84-year-old female presents emergency department today with complaint of low back pain, she states she has had trouble for with her back for some time but over the last couple of days it has gotten progressively worse to the point where she has difficulty walking. She also did receive an injection in her right hip approximately 3 weeks ago she states for bursitis. She denies any fever no loss of bowel or bladder or fevers, denies trauma. She is not interested in medications would like to have an x-ray taken. Lower Back Pain Score (Numeric/FACES): 8 - Related Data Allergies Allergy/AdvReac Type Severity Reaction Status Date / Time amoxicillin Allergy Rash Verified 10/01/19 07:25 celecoxib [From Celebrex] Allergy Hives Verified 10/01/19 07:25 cisapride monohydrate Allergy Hives Verified 10/01/19 07:25 [From Propulsid] famotidine [From Pepcid] Allergy Hives Verified 10/01/19 07:25 furosemide [From Lasix] Allergy Rash Verified 10/01/19 07:25 lansoprazole [From Prevacid] Allergy Rash Verified 10/01/19 07:25 levofloxacin [From Levaquin] Allergy Rash Verified 10/01/19 07:25 omeprazole [From Prilosec] Allergy Rash Verified 10/01/19 07:25 omeprazole magnesium Allergy Rash Verified 10/01/19 07:25 [From Prilosec] pilocarpine Allergy Hives Verified 10/01/19 07:25 prednisolone acetate, Allergy Hives Verified 10/01/19 07:25 micronized rabeprazole sodium Allergy Hives Verified 10/01/19 07:25 [From Aciphex] salsalate [Salsalate] Allergy Hives Verified 10/01/19 07:25 Sulfa (Sulfonamide Allergy Rash Verified 10/01/19 07:25 Antibiotics) hydrocodone AdvReac Nausea and Verified 10/01/19 07:25 Vomiting morphine AdvReac Hallucinati Verified 10/01/19 07:25 ons Home Meds: Home Meds Ethacrynic Acid [Edecrin] 50 mg PO DAILY 04/07/16 [History] Lisinopril 20 mg PO BID 04/07/16 [History] Loratadine 10 mg PO DAILY 04/07/16 [History] Simvastatin 20 mg PO BEDTIME 04/07/16 [History] Sucralfate 1 gm PO QID 04/07/16 [History] Warfarin Sodium 5 mg PO DAILY 04/07/16 [History] metroNIDAZOLE [Metronidazole] 1 dose TOP ASDIRECTED 04/07/16 [History] Acetaminophen [Pain Reliever] 325 - 650 tab PO Q6H PRN 02/25/17 [History] Metoprolol Tartrate 12.5 tab PO BID 02/25/17 [History] Multivitamin [Daily Bradly] 1 tab PO DAILY 02/25/17 [History] Dun[place]-3S/DHA/Epa/Fish Oil [[place]-3 Fish Oil 1,000 mg Sfgl] 1 tab PO DAILY [History] Oxybutynin [Oxybutynin ER] 10 mg PO BEDTIME 08/26/18 [History] Carboxymethylcellulose Sodium [Refresh Plus 0.5% Ophth Soln] 1 each EYEBOTH TID 11/28/18 [History] Cholecalciferol (Vitamin D3) [Vitamin D3] 2,000 unit PO DAILY 11/28/18 [History] hydrOXYzine HCL [Atarax] 25 mg PO BEDTIME 12/24/18 [History] Cyclobenzaprine [Flexeril] 10 mg PO TID PRN #15 tab 10/01/19 [Rx] cephALEXin [Cephalexin] 500 mg PO BID 10/01/19 [History] Past Medical History HEENT History: Reports: Cataract, Impaired Vision Cardiovascular History: Reports: Hypertension Gastrointestinal History: Reports: Diverticulosis 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: Musculoskeletal History: Reports: Arthritis Endocrine/Metabolic History: Reports: Diabetes, Type II Other Endocrine/Metabolic History: controlled by diet Hematologic History: Reports: Anemia - Infectious Disease History Infectious Disease History: Reports: Chicken Pox, Measles, Mumps - Past Surgical History HEENT Surgical History: Reports: Cataract Surgery GI Surgical History: Reports: Other (See Below) Other GI Surgeries/Procedures: had surgery for diverticulitis and enlarged ovary Female Surgical History: Reports: Other (See Below) Other Female Surgeries/Procedures: bladder sling Musculoskeletal Surgical History: Reports: Knee Replacement Social & Family History - Family History GI: Reports: Other (See Below) - Tobacco Use Smoking Status *Q: Never Smoker - Caffeine Use Caffeine Use: Reports: None - Recreational Drug Use Recreational Drug Use: No ED ROS GENERAL - Review of Systems Review Of Systems: See Below Constitutional: Reports: No Symptoms HEENT: Reports: No Symptoms Respiratory: Reports: No Symptoms Cardiovascular: Reports: No Symptoms GI/Abdominal: Reports: No Symptoms : Reports: No Symptoms Musculoskeletal: Reports: Back Pain Neurological: Reports: No Symptoms ED EXAM,LOWER BACK PAIN/INJURY - Physical Exam Exam: See Below Exam Limited By: No Limitations General Appearance: Alert, WD/WN, No Apparent Distress Respiratory/Chest: No Respiratory Distress Back Exam: Normal Inspection, Decreased Range of Motion, Muscle Spasm, Paraspinal Tenderness (Right side). No: CVA Tenderness (R), CVA Tenderness (L) , Vertebral Tenderness Extremities: No Pedal Edema, Other (Straight leg test and cross leg test are both negative) Course - Vital Signs Last Recorded V/S: Last Vital Signs Temp 97.3 F 10/01/19 07:24 Pulse 81 10/01/19 07:24 Resp 16 10/01/19 07:24 BP 138/63 10/01/19 07:24 Pulse Ox 96 10/01/19 07:24 - Orders/Labs/Meds Meds: Medications Discontinued Medications Generic Name Dose Route Start Last Admin Trade Name Christianq PRN Reason Stop Dose Admin Cyclobenzaprine HCl 10 mg 10/01/19 08:21 10/01/19 08:54 Flexeril PO 10/01/19 08:22 10 mg ONETIME ONE Administration Ketorolac Tromethamine 60 mg 10/01/19 08:21 10/01/19 08:54 Toradol IM 10/01/19 08:22 60 mg ONETIME ONE Administration Departure - Departure Time of Disposition: 09:48 Disposition: Home, Self-Care 01 Condition: Fair Clinical Impression: Low back pain Qualifiers: Chronicity: acute Back pain laterality: right Sciatica presence: without sciatica Qualified Code(s): M54.5 - Low back pain - Discharge Information Instructions: Back Exercises, [id number], Muscle Strain, [id number] Referrals: Lorene Andrade MD [Primary Care Provider] - Forms: ED Department Discharge Additional Instructions: Continue to use ibuprofen or Tylenol as needed for pain control, use the Flexeril for additional comfort, be mindful that these medications may influence your Coumadin and your INR level, please followup with your primary care provider in 3-5 days if not better, please call return to the emergency department with worsening of symptoms. Sepsis Event Note - Evaluation Sepsis Screening Result: No Definite Risk - Focused Exam Vital Signs: Vital Signs Temp Pulse Resp BP Pulse Ox 10/01/19 07:24 97.3 F 81 16 138/63 96 10/01/19 07:22 97.3 F 81 16 138/63 96 Date Exam was Performed: 10/01/19 Time Exam was Performed: 09:45 - Assessment/Plan Plan: Assessment Acuity = acute Site and laterality = low back pain Etiology = unknown Manifestations = none Location of injury = Home Lab values = lumbar films shows degenerative joint disease Plan She had good improvement with combination Toradol Flexeril she is pain-free at this time I did review x-ray films with her she would like to try the Flexeril at home prescription written for 10 mg p.o. 3 times daily PRN total #15 follow- up with primary care 3 to 5 days if not better consider physical therapy This note was dictated using [employer] voice recognition software please call with any questions on syntax or grammar.
[2019-10-01] MEDS ORDERED: Cyclobenzaprine 10 MG Tab PO ONE (08:21)
[2019-10-01] MEDS ORDERED: Ketorolac 60 MG/2 ML SDV IM ONE (08:21)
--- NOTE | 2019-10-01 08:44 | CR ---
Lumbar Spine 2 or 3V CLINICAL HISTORY: Back pain FINDINGS: The vertebral body heights are maintained. There is diffuse degenerative disc change with spondylosis. There is a moderate anterolisthesis of L4 and L5. This is likely secondary to facet disease. There are atherosclerotic changes in the aorta. There is a transitional lumbosacral segment. IMPRESSION: Moderate anterolisthesis of L4 on L5 likely due to facet disease Moderate diffuse degenerative disc disease
== END 2019-10-01 10:14 | disposition home or self-care (01) ==
LOC: JP.ED 06:50
DX: M54.5 Low back pain (principal); I10 Essential (primary) hypertension; E11.9 Type 2 diabetes mellitus without complications; M19.90 Unspecified osteoarthritis, unspecified site; Z88.8 Allergy status to other drugs, medicaments and biological substances; Z88.2 Allergy status to sulfonamides; Z88.5 Allergy status to narcotic agent; Z88.1 Allergy status to other antibiotic agents; Z79.899 Other long term (current) drug therapy; Z79.01 Long term (current) use of anticoagulants
CPT/HCPCS: 72100; 96372; 99283; A9270; J1885

== ENCOUNTER 2019-11-05 20:06 | Emergency (ER) | payer MEDICARE ==
[2019-11-05 22:17] VITALS: BP 121/65; PULSE 96
--- NOTE | 2019-11-05 22:42 | EDM.PDOC ---
ED HPI GENERAL MEDICAL PROBLEM - General Chief Complaint: Chest Pain Stated Complaint: MEDICAL Time Seen by Provider: 11/05/19 21:50 Source of Information: Reports: Patient History Limitations: Reports: No Limitations - History of Present Illness INITIAL COMMENTS - FREE TEXT/NARRATIVE: 84 yo who presents with concerns of chest pain. Symptoms started relatively abruptly at 3pm this afternoon. Pain is a left sided ache with radiation into the shoulder. Earlier in the day she had been doing house work without any issues. There is no associated dyspnea. No exertional symptoms or change in pain. Not pleuritic. No cough. No fevers. No history of cardiac disease. Does have hx of DVT, on coumadin for this. Chest Pain Score (Numeric/FACES): 6 - Related Data Allergies Allergy/AdvReac Type Severity Reaction Status Date / Time amoxicillin Allergy Rash Verified 11/05/19 20:12 celecoxib [From Celebrex] Allergy Hives Verified 11/05/19 20:12 cisapride monohydrate Allergy Hives Verified 11/05/19 20:12 [From Propulsid] famotidine [From Pepcid] Allergy Hives Verified 11/05/19 20:12 furosemide [From Lasix] Allergy Rash Verified 11/05/19 20:12 lansoprazole [From Prevacid] Allergy Rash Verified 11/05/19 20:12 levofloxacin [From Levaquin] Allergy Rash Verified 11/05/19 20:12 omeprazole [From Prilosec] Allergy Rash Verified 11/05/19 20:12 omeprazole magnesium Allergy Rash Verified 11/05/19 20:12 [From Prilosec] pilocarpine Allergy Hives Verified 11/05/19 20:12 prednisolone acetate, Allergy Hives Verified 11/05/19 20:12 micronized rabeprazole sodium Allergy Hives Verified 11/05/19 20:12 [From Aciphex] salsalate [Salsalate] Allergy Hives Verified 11/05/19 20:12 Sulfa (Sulfonamide Allergy Rash Verified 11/05/19 20:12 Antibiotics) hydrocodone AdvReac Nausea and Verified 11/05/19 20:12 Vomiting morphine AdvReac Hallucinati Verified 11/05/19 20:12 ons Home Meds: Home Meds Ethacrynic Acid [Edecrin] 50 mg PO DAILY 04/07/16 [History] Lisinopril 20 mg PO BID 04/07/16 [History] Loratadine 10 mg PO DAILY 04/07/16 [History] Simvastatin 20 mg PO BEDTIME 04/07/16 [History] Sucralfate 1 gm PO QID 04/07/16 [History] Warfarin Sodium 5 mg PO DAILY 04/07/16 [History] metroNIDAZOLE [Metronidazole] 1 dose TOP ASDIRECTED 04/07/16 [History] Acetaminophen [Pain Reliever] 325 - 650 tab PO Q6H PRN 02/25/17 [History] Metoprolol Tartrate 12.5 tab PO BID 02/25/17 [History] Multivitamin [Daily Bradly] 1 tab PO DAILY 02/25/17 [History] [place]-3S/DHA/Epa/Fish Oil [[place]-3 Fish Oil 1,000 mg Sfgl] 1 tab PO DAILY [History] Carboxymethylcellulose Sodium [Refresh Plus 0.5% Ophth Soln] 1 each EYEBOTH TID 11/28/18 [History] Cholecalciferol (Vitamin D3) [Vitamin D3] 2,000 unit PO DAILY 11/28/18 [History] hydrOXYzine HCL [Atarax] 25 mg PO BEDTIME 12/24/18 [History] Cyclobenzaprine [Flexeril] 10 mg PO TID PRN #15 tab 10/01/19 [Rx] Past Medical History HEENT History: Reports: Cataract, Glaucoma, Impaired Vision Cardiovascular History: Reports: Heart Failure, Hypertension Respiratory History: Reports: Sleep Apnea Other Respiratory History: c-pap Gastrointestinal History: Reports: Diverticulosis Genitourinary History: Reports: UTI, Recurrent 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: Musculoskeletal History: Reports: Arthritis Psychiatric History: Reports: Anxiety Endocrine/Metabolic History: Reports: Diabetes, Type II Other Endocrine/Metabolic History: controlled by diet Hematologic History: Reports: Anemia, Blood Transfusion(s) Dermatologic History: Reports: Urticaria - Infectious Disease History Infectious Disease History: Reports: Chicken Pox, Mumps - Past Surgical History HEENT Surgical History: Reports: Cataract Surgery GI Surgical History: Reports: Appendectomy, Colon, Other (See Below) Other GI Surgeries/Procedures: had surgery for diverticulitis and enlarged ovary Female Surgical History: Reports: Other (See Below) Other Female Surgeries/Procedures: bladder sling Musculoskeletal Surgical History: Reports: Knee Replacement Other Musculoskeletal Surgeries/Procedures:: left Social & Family History - Family History GI: Reports: Other (See Below) - Tobacco Use Smoking Status *Q: Never Smoker - Caffeine Use Caffeine Use: Reports: None - Recreational Drug Use Recreational Drug Use: No ED ROS GENERAL - Review of Systems Review Of Systems: See Below Constitutional: Reports: No Symptoms HEENT: Reports: No Symptoms Respiratory: Denies: Shortness of Breath, Pleuritic Chest Pain, Cough, Hemoptysis Cardiovascular: Reports: Chest Pain. Denies: Dyspnea on Exertion Endocrine: Reports: No Symptoms GI/Abdominal: Reports: No Symptoms : Reports: No Symptoms Musculoskeletal: Reports: No Symptoms Skin: Reports: No Symptoms Neurological: Reports: No Symptoms Psychiatric: Reports: No Symptoms Hematologic/Lymphatic: Reports: No Symptoms Immunologic: Reports: No Symptoms ED EXAM, GENERAL - Physical Exam Exam: See Below Exam Limited By: No Limitations General Appearance: Alert, No Apparent Distress Ears: Normal External Exam Nose: Normal Inspection Throat/Mouth: Normal Inspection Head: Atraumatic, Normocephalic Neck: Normal Inspection Respiratory/Chest: Lungs Clear, Other (no chest wall tenderness) Cardiovascular: Regular Rate, Rhythm GI/Abdominal: Soft, Non-Tender Back Exam: Normal Inspection Extremities: Normal Inspection Neurological: Alert, Oriented Psychiatric: Normal Affect, Normal Mood Skin Exam: Warm, Dry Course - Vital Signs Last Recorded V/S: Last Vital Signs Temp 37.4 C 11/05/19 20:07 Pulse 96 11/05/19 22:17 Resp 18 11/05/19 22:17 BP 121/65 11/05/19 22:17 Pulse Ox 98 11/05/19 22:17 - Orders/Labs/Meds Orders: Active Orders 24 hr Category Date Time Status CXR [Chest 2V] [CR] Stat Exams 11/05/19 21:19 Taken Labs: Laboratory Tests 11/05/19 11/05/19 11/05/19 Range/Units 20:15 20:15 20:20 WBC 10.6 (4.5-11.0) K/uL RBC 4.51 (3.30-5.50) M/uL Hgb 13.6 (12.0-15.0) g/dL Hct 40.8 (36.0-48.0) % MCV 91 (80-98) fL MCH 30 (27-31) pg MCHC 33 (32-36) % Plt Count 226 (150-400) K/uL PT 24.0 H (9.5-12.0) sec INR 2.33 H (0.80-1.20) Sodium 138 L (140-148) mmol/L Potassium 3.6 (3.6-5.2) mmol/L Chloride 100 (100-108) mmol/L Carbon Dioxide 26 (21-32) mmol/L Anion Gap 15.6 H (5.0-14.0) mmol/L BUN 20 H D (7-18) mg/dL Creatinine 1.0 (0.6-1.0) mg/dL Est Cr Clr Drug Dosing 29.01 mL/min Estimated GFR (MDRD) 53 L (>60) Glucose 165 H (74-106) mg/dL Calcium 9.2 D (8.5-10.1) mg/dL Total Bilirubin 0.4 (0.2-1.0) mg/dL AST 16 (15-37) U/L ALT 29 (12-78) U/L Alkaline Phosphatase 61 (46-116) U/L Troponin I < 0.017 (0.000-0.056) ng/mL Total Protein 6.5 (6.4-8.2) g/dL Albumin 3.3 L (3.4-5.0) g/dL Globulin 3.2 (2.3-3.5) g/dL Albumin/Globulin Ratio 1.0 L (1.2-2.2) 11/05/19 Range/Units 21:53 WBC (4.5-11.0) K/uL RBC (3.30-5.50) M/uL Hgb (12.0-15.0) g/dL Hct (36.0-48.0) % MCV (80-98) fL MCH (27-31) pg MCHC (32-36) % Plt Count (150-400) K/uL PT (9.5-12.0) sec INR (0.80-1.20) Sodium (140-148) mmol/L Potassium (3.6-5.2) mmol/L Chloride (100-108) mmol/L Carbon Dioxide (21-32) mmol/L Anion Gap (5.0-14.0) mmol/L BUN (7-18) mg/dL Creatinine (0.6-1.0) mg/dL Est Cr Clr Drug Dosing mL/min Estimated GFR (MDRD) (>60) Glucose (74-106) mg/dL Calcium (8.5-10.1) mg/dL Total Bilirubin (0.2-1.0) mg/dL AST (15-37) U/L ALT (12-78) U/L Alkaline Phosphatase (46-116) U/L Troponin I < 0.017 (0.000-0.056) ng/mL Total Protein (6.4-8.2) g/dL Albumin (3.4-5.0) g/dL Globulin (2.3-3.5) g/dL Albumin/Globulin Ratio (1.2-2.2) - Re-Assessments/Exams Free Text/Narrative Re-Assessment/Exam: 84 presents with concerns of chest pain. Symptoms largely resolved in ED On exam initially mildly tachycardic, now normalized. No other abnormal finding. No history of CAD. Does have history of DVT, on coumadin, INR is therapeutic and she has no dyspnea , pleuritic pain, and symptoms are improving - low concern for PE. Obtain trop x2 - negative. Non-ischemic EKG. CXR and remainder of labs unremarkable. Vitals stable during period of observation in ED, passed ambulatory trial. Unclear etiology but given above, safe for discharge. Does not sound cardiac in nature so will defer referral for stress testing at this time. PCP follow-up prn. 11/05/19 22:44 Departure - Departure Time of Disposition: 22:48 Disposition: Home, Self-Care 01 Clinical Impression: Chest pain Qualifiers: Chest pain type: unspecified Qualified Code(s): R07.9 - Chest pain, unspecified Instructions: Nonspecific Chest Pain, Adult Referrals: PCP,None [Primary Care Provider] - Additional Instructions: We did not find a cause for your symptoms in the ED tonight but your work-up was re-assuring that there is not an emergent condition causing your symptoms. Please return to the ED or see your primary doctor if you notice recurrent and persistent symptoms as it may be appropriate to do further cardiac testing or further work-up. Sepsis Event Note - Evaluation Sepsis Screening Result: No Definite Risk - Focused Exam Vital Signs: Vital Signs Temp Pulse Resp BP Pulse Ox 11/05/19 22:17 96 18 121/65 98 11/05/19 21:09 95 19 143/76 H 96 11/05/19 20:35 98 17 141/74 H 97 11/05/19 20:07 37.4 C 111 H 20 174/77 H 98 Date Exam was Performed: 11/05/19 Time Exam was Performed: 22:37 - My Orders Last 24 Hours: My Active Orders 11/05/19 21:19 CXR [Chest 2V] [CR] Stat - Assessment/Plan Last 24 Hours: My Active Orders 11/05/19 21:19 CXR [Chest 2V] [CR] Stat
--- NOTE | 2019-11-06 09:17 | CR ---
CHEST: 2 view CLINICAL HISTORY:Chest pain COMPARISON:CT August 2009 FINDINGS: Heart size and pulmonary vascularity are normal. There are atherosclerotic changes in the aorta.. There is patchy density in the medial segment of the right middle lobe and the lingula. This could represent some atelectasis but infiltrate is felt more likely. Impression: Patchy densities in the right middle lobe and lingula are suspect for bilateral pneumonia
== END 2019-11-05 22:57 | disposition home or self-care (01) ==
LOC: JP.ED 20:06
DX: R07.9 Chest pain, unspecified (principal); I11.0 Hypertensive heart disease with heart failure; I50.9 Heart failure, unspecified; E11.9 Type 2 diabetes mellitus without complications; Z79.01 Long term (current) use of anticoagulants; Z79.899 Other long term (current) drug therapy; Z88.5 Allergy status to narcotic agent; Z88.2 Allergy status to sulfonamides; Z88.8 Allergy status to other drugs, medicaments and biological substances; Z88.1 Allergy status to other antibiotic agents
CPT/HCPCS: 36415; 71046; 71046-26; 80053; 84484; 85027; 85610; 93005; 93010; 99283; 99285-25

== ENCOUNTER 2022-12-03 18:35 | Emergency (ER) | payer MEDICARE | END 2022-12-03 19:27 | disposition home or self-care (01) | LOC: JP.ED 18:35 | DX: I11.0 Hypertensive heart disease with heart failure (principal); I50.9 Heart failure, unspecified; E11.9 Type 2 diabetes mellitus without complications; Z88.0 Allergy status to penicillin; Z88.8 Allergy status to other drugs, medicaments and biological substances; Z88.5 Allergy status to narcotic agent; Z88.2 Allergy status to sulfonamides; Z79.01 Long term (current) use of anticoagulants; Z79.899 Other long term (current) drug therapy | CPT/HCPCS: 99283 ==

== ENCOUNTER 2023-01-05 14:07 | Emergency (ER) | payer MEDICARE ==
[2023-01-05] MEDS ORDERED: Lisinopril 10 MG Tab PO ONE (15:13)
[2023-01-05 15:24] LABS: BASOPHILS ABSOLUTE AUTO 0.06 K/uL (0.00-0.10); BASOPHILS PERCENT AUTO 0.8 % (0.1-1.3); EOSINOPHILS ABSOLUTE AUTO 0.29 K/uL (0.00-0.40); EOSINOPHILS PERCENT AUTO 3.9 % (0.0-5.4); HEMATOCRIT 41.8 % (34.3-46.0); HEMOGLOBIN 14.5 g/dL (11.2-15.5); IMMATURE GRAN ABSOLUTE AUTO 0.04 K/uL (0.00-0.23); IMMATURE GRAN PERCENT AUTO 0.5 % (0.0-0.7); LYMPHOCYTES ABSOLUTE AUTO 1.67 K/uL (0.8-3.3); LYMPHOCYTES PERCENT AUTO 22.3 % (11.4-47.7); MEAN CORPUSCULAR HEMOGLOBIN 31.3 pg (31.6-35.5); MEAN CORPUSCULAR HGB CONC 34.7 g/dL (31.6-35.5); MEAN CORPUSCULAR VOLUME 90.3 fL (81.4-99.0); MONOCYTES ABSOLUTE AUTO 0.62 K/uL (0.20-0.90); MONOCYTES PERCENT AUTO 8.3 % (3.3-12.6); NEUTROPHILS ABSOLUTE AUTO 4.81 K/uL (1.0-7.6); NEUTROPHILS PERCENT AUTO 64.2 % (40.0-78.1); PLATELET COUNT,PLT 190 K/uL (130-375); RED BLOOD CELL COUNT 4.63 M/uL (3.77-5.24); WHITE BLOOD CELL COUNT,WBC 7.5 K/uL (3.2-11.0)
[2023-01-05 15:40] LABS: ANION GAP 6.7 mmol/L (5.0-14.0); BLOOD UREA NITROGEN,BUN 17 mg/dL (7-18); CARBON DIOXIDE,CO2 30 mmol/L (21-32); CHLORIDE,CL 103 mmol/L (100-108); CREATININE 0.7 mg/dL (0.6-1.0); ESTIMATED GFR 83 mL/min (>60); GLUCOSE RANDOM 148 mg/dL (74-106); SODIUM,NA 140 mmol/L (140-148)
[2023-01-05 15:42] LABS: PROTHROMBIN TIME 10.4 sec (9.2-10.6)
[2023-01-05] MEDS ORDERED: LORazepam 0.5 MG Tab PO ONE (16:02)
== END 2023-01-05 17:42 | disposition home or self-care (01) ==
LOC: JP.ED 14:07
DX: I11.0 Hypertensive heart disease with heart failure (principal); I50.9 Heart failure, unspecified; E78.00 Pure hypercholesterolemia, unspecified; E11.9 Type 2 diabetes mellitus without complications; Z88.5 Allergy status to narcotic agent; Z88.8 Allergy status to other drugs, medicaments and biological substances; Z88.2 Allergy status to sulfonamides; Z88.1 Allergy status to other antibiotic agents; Z88.0 Allergy status to penicillin; Z79.899 Other long term (current) drug therapy; Z79.01 Long term (current) use of anticoagulants
CPT/HCPCS: 36415; 80048; 85025; 85610; 99283; A9270

== ENCOUNTER 2023-01-21 09:46 | Emergency (ER) | payer MEDICARE ==
[2023-01-21 10:30] LABS: HEMATOCRIT 38.6 % (34.3-46.0); HEMOGLOBIN 13.3 g/dL (11.2-15.5); MEAN CORPUSCULAR HEMOGLOBIN 31.3 pg (31.6-35.5); MEAN CORPUSCULAR HGB CONC 34.5 g/dL (31.6-35.5); MEAN CORPUSCULAR VOLUME 90.8 fL (81.4-99.0); RED BLOOD CELL COUNT 4.25 M/uL (3.77-5.24); WHITE BLOOD CELL COUNT,WBC 10.9 K/uL (3.2-11.0)
[2023-01-21 10:47] LABS: INR 2.2; PROTHROMBIN TIME 20.9 sec (9.2-10.6)
[2023-01-21 11:00] LABS: A/G RATIO 0.8 (1.2-2.2); ALANINE AMINOTRANSFERASE,ALT 23 U/L (12-78); ALKALINE PHOSPHATASE 69 U/L (46-116); ASPARTATE AMNIOTRANSFERASE,AST 19 U/L (15-37); BILIRUBIN TOTAL 0.6 mg/dL (0.2-1.0); BLOOD UREA NITROGEN,BUN 13 mg/dL (7-18); CALCIUM 8.9 mg/dL (8.5-10.1); CARBON DIOXIDE,CO2 28 mmol/L (21-32); CHLORIDE,CL 103 mmol/L (100-108); CREATININE 0.8 mg/dL (0.6-1.0); EST CRCL DRUG DOSING (CG) 34.24 mL/min; ESTIMATED GFR 70 mL/min (>60); GLUCOSE RANDOM 150 mg/dL (74-106); POTASSIUM,K 4.1 mmol/L (3.6-5.2); PRO B-TYPE NATRIUR PEPT,BNPPRO 189 pg/mL (5-450); PROTEIN TOTAL,TP 6.6 g/dL (6.4-8.2); SODIUM,NA 139 mmol/L (140-148)
[2023-01-21 11:01] LABS: ANION GAP 12.1 mmol/L (5.0-14.0)
[2023-01-21 11:18] LABS: APPEARANCE,URINE CLEAR (CLEAR); BILIRUBIN,URINE NEGATIVE (NEGATIVE); COLOR,URINE YELLOW (YELLOW); GLUCOSE,URINE NEGATIVE (NEGATIVE); KETONES,URINE NEGATIVE (NEGATIVE); LEUKOCYTE ESTERASE,URINE NEGATIVE (NEGATIVE); NITRITE,URINE NEGATIVE (NEGATIVE); OCCULT BLOOD,URINE TRACE-INTACT (NEGATIVE); PH,URINE 5.5 (5.0-8.0); PROTEIN,URINE NEGATIVE (NEGATIVE); UROBILINOGEN,URINE 0.2 EU/dL (0.2-1.0)
[2023-01-21 11:24] LABS: AMORPHOUS SEDIMENT,URINE NOT SEEN; BACTERIA,URINE FEW; EPITHELIAL CELLS,URINE MODERATE; MUCUS,URINE NOT SEEN; RBC,URINE 0-5 (0-5); WBC,URINE 0-5 (0-5)
== END 2023-01-21 12:32 | disposition home or self-care (01) ==
LOC: JP.ED 09:46
DX: M19.90 Unspecified osteoarthritis, unspecified site (principal); I11.0 Hypertensive heart disease with heart failure; I50.9 Heart failure, unspecified; E78.00 Pure hypercholesterolemia, unspecified; E11.9 Type 2 diabetes mellitus without complications; Z88.0 Allergy status to penicillin; Z88.8 Allergy status to other drugs, medicaments and biological substances; Z88.5 Allergy status to narcotic agent; Z79.01 Long term (current) use of anticoagulants; Z79.899 Other long term (current) drug therapy; Z20.822 Contact with and (suspected) exposure to COVID-19
CPT/HCPCS: 36415; 71046; 73110; 80053; 81001; 83605; 83880; 84484; 85027; 85610; 93005; 99285; U0002